=== PATIENT | female | born 1995 | race Caucasian/White ===

== ENCOUNTER 2017-03-25 13:48 | Emergency (ER) | payer OTHER ==
[2017-03-25 16:53] LABS: Hematocrit 46 % (35-47); Hemoglobin 15.9 g/dl (12.0-16.0); Mean Corpuscular HGB Conc 35 g/dl (31-36); Mean Corpuscular Hemoglobin 28 pg (27-31); Mean Corpuscular Volume 81 fL (80-97); Mean Platelet Volume 10 um3 (7.4-10.4); Red Blood Count 5.68 10^6/ul (4.0-5.4); Red Cell Distribution Width 13 % (10.5-15); White Blood Count 13.3 10^3/ul (3.5-10.8)
[2017-03-25 17:07] LABS: Albumin 4.9 g/dL (3.2-5.2); BUN/Creatinine Ratio 13.3 (8-20); Calcium 9.6 mg/dL (8.6-10.3); EGFR African American 126.7 (>60); EGFR Non-African American 98.5 (>60); Globulin 2.8 g/dL (2-4); Potassium 3.7 mmol/L (3.5-5.0); Total Bilirubin 0.5 mg/dL (0.2-1.0); Total Protein 7.7 g/dL (6.4-8.9)
[2017-03-25] MEDS ORDERED: NS 0.9% 1000 ML* 1,000 ML IV SCH (18:15)
[2017-03-25 18:31] LABS: Urine Bilirubin Negative (Negative); Urine Glucose Negative (Negative); Urine Nitrite Negative (Negative)
[2017-03-25] MEDS ORDERED: Iohexol 300* (CONTRAST) 10 ML SDV IV ONE (19:04)
--- NOTE | 2017-03-25 21:09 | RAD ---
CLINICAL HISTORY: Right lower quadrant pain COMPARISON: None TECHNIQUE: Multiple contiguous axial CT scans were obtained of the abdomen and pelvis after the administration of intravenous contrast. Coronal and sagittal multiplanar reformations are submitted for review. Oral contrast was administered. Delayed images were obtained through the abdomen and pelvis. FINDINGS: LUNG BASES: The lung bases are clear. LIVER: The liver is normal in shape, size, contour, and attenuation. BILE DUCTS: There is no intrahepatic or extrahepatic biliary dilatation. GALLBLADDER: The gallbladder is normal, without pericholecystic inflammatory change. PANCREAS: The pancreas is normal, without mass or ductal dilatation. SPLEEN: Normal in size and appearance. UPPER GI TRACT: Evaluation of the gastrointestinal tract is limited by incomplete gastric distention. The upper GI tract is unremarkable. SMALL BOWEL AND MESENTERY: The small bowel is normal in contour, course, and caliber. There is no obstruction or dilatation. COLON: L appendix this is best seen on axial images 54 through 64. ADRENALS: Normal bilaterally. KIDNEYS: The kidneys are normal in shape, size, contour, and axis. There is no hydronephrosis or nephrolithiasis. BLADDER: The bladder is smooth in contour. PELVIC ORGANS: There is a 4.5 cm simple cyst of the right ovary. AORTA: The aorta is normal. IVC: Unremarkable LYMPH NODES: There is no lymphadenopathy by size criteria. ABDOMINAL WALL: There is no evidence for abdominal wall hernia. BONES AND SOFT TISSUES: Mild degenerative changes are noted at L4-L5. OTHER: None IMPRESSION: NORMAL APPENDIX. SIMPLE RIGHT OVARIAN CYST.
--- NOTE | 2017-03-25 22:55 | ED ---
Mariusz Bonilla Stephanie, scribed for Saad Duarte on 03/25/17 at 2255 . Progress - Progress Note Progress Note: CT abdominal/pelvis shows ovarian cyst on the right ovary. Pelvic US was obtained and pt will be discharged home after US is received. Course/Dx - Course Course Of Treatment: CT abd/pel was obtained and showed an ovarian cyst on the right ovary. Pt will be discharged home. Pt is diagnosed with abdominal pain and ovarian cyst. - Diagnoses Provider Diagnoses: RLQ abdominal pain, Ovarian cyst The documentation as recorded by the Mariusz agrawal Stephanie accurately reflects the service I personally performed and the decisions made by Gerald olivarez Emmanuel.
[2017-03-25] MEDS ORDERED: Ibuprofen TAB* 400 MG PO ONE (23:41)
[2017-03-26 00:15] VITALS: BP 137/80
--- NOTE | 2017-03-26 07:46 | RAD ---
INDICATION: 21-year-old. Possible ovarian torsion COMPARISON: CT abdomen pelvis March 25, 2017 TECHNIQUE: Longitudinal and transverse transabdominal scans of the pelvis were obtained. FINDINGS: Uterus: The uterus is normal in size. There are no focal masses. The uterus measures 8.4 x 3.7 x 4.1 cm. Endometrial thickness: The endometrial thickness is measured at 0.9 cm. . Free fluid: Small amount of fluid in the right adnexa . Ovaries: The ovaries are normal in size. The right ovary measures 5.4 x 4.2 x 4.6 cm. The left ovary measures 3.1 x 1.9 x 3.2 cm. There is a mildly, located right ovarian cyst measuring 5.4 x 4.2 x 4.6 cm. Doppler interrogation demonstrates flow to each ovary. Other: None IMPRESSION: MODERATE COMPLEX RIGHT OVARIAN CYST WITHOUT FINDINGS OF TORSION. SUGGEST FOLLOW-UP IN 2-3 MENSTRUAL CYCLES OR EMERGENTLY IF THERE IS CONCERN OF INTERMITTENT TORSION
== END 2017-03-26 00:14 ==
LOC: ED 13:48
DX: R10.31 Right lower quadrant pain (principal); N83.209 Unspecified ovarian cyst, unspecified side
CPT/HCPCS: 36415; 74177; 76856; 80053; 81003; 85025; 96360; 99283; Q9967